=== PATIENT | female | born 1985 ===

== ENCOUNTER → 2018-10-06 | Outpatient (CLI) | payer OTHER ==
[~2018-10-06] MED LIST: IOHEXOL 300 MG/ML 100ML VIAL. INT CAT ONE; IOHEXOL 300 MG/ML 100ML VIAL. ONE
[2018-10-06 13:43] LABS: U PREG PATIENT NEGATIVE (NEG)
--- NOTE | 2018-10-06 14:48 | RAD ---
Indication: History of left ectopic . TECHNIQUE: Hysterosalpingogram with 0.4 seconds of fluoroscopy time and 6 images. 5 mL of Omnipaque 300 contrast was used. After explaining the procedure the cervix was cannulated under sterile conditions. 5 mm of contrast was injected. Multiple spot images were performed. COMPARISON: None FINDINGS: Prompt opacification of the endometrial cavity and bilateral fallopian tubes was seen. Free spillage of contrast was seen into the peritoneal cavity bilaterally. IMPRESSION: Patent bilateral fallopian tubes. Electronically signed by: Ky Vann DO (10/06/2018 2:45 PM) [facility]
== END ==
LOC: RAD 14:27
PROVIDERS: ATTEND Obstetrics & Gynecology Reproductive Endocrinology
DX: Z31.41 Encounter for fertility testing (principal)
CPT/HCPCS: 58340; 74740; 81025